=== PATIENT | female | born 1965 | race African-American/Black ===

== ENCOUNTER → 2018-06-11 | Day surgery (SDC) | payer BC ==
[2018-06-08 10:29] LABS: Basophils # (auto) 0 uL; Basophils % (auto) 0.3 % (0.0-2.0); Eosinophils # (auto) 0.1 uL; Eosinophils % (auto) 1.5 % (0.0-7.0); Hematocrit 40.1 % (36.0-46.0); Hemoglobin 13.3 g/dL (12.2-16.2); Lymphocytes # (auto) 1.1 uL; Lymphocytes % (auto) 29.3 % (10.0-50.0); Mean Corpuscular Hemoglobin 29.7 pg (28.0-32.0); Mean Corpuscular Hgb Conc. 33.3 g/dL (32.0-36.0); Mean Corpuscular Volume 89.2 fL (80.0-100.0); Monocytes # (auto) 0.3 uL; Monocytes % (auto) 8.6 % (0.0-12.0); Neutrophils # (auto) 2.3 uL; Neutrophils % (auto) 60.3 % (37.0-80.0); Nucleated Red Blood Cells % 0.1 %; Platelet Count (auto) 183 10^3/uL (140-450); Red Blood Cells 4.49 10^6/uL (4.0-5.20); White Blood Cell 3.8 10^3/uL (4.4-10.8)
[2018-06-08 10:40] LABS: Urine Bacteria NONE SEEN /hpf (None Seen); Urine Blood Negative /uL (Negative); Urine Specific Gravity 1.025 (1.001-1.035); Urine WBC <1 /hpf (0 - 5)
[2018-06-08 10:59] LABS: INR 0.94 (0.9-1.15); Partial Thromboplastin Time 25.2 sec (23.78-33.04); Prothrombin Time 10.1 sec (9.27-12.13)
[2018-06-08 11:19] LABS: Potassium 3.7 mmol/L (3.5-5.1)
[2018-06-08 11:34] LABS: Albumin 3.4 g/dL (3.4-5.0); Bilirubin, Total 0.2 mg/dL (0.2-1.0); Calcium 8.4 mg/dL (8.5-10.1)
[~2018-06-11] VITALS: Ht 172.7 cm; Wt 99.8 kg
[~2018-06-11] MED LIST: ACET-1603 OR; ASPI81TA27 PO; BUPIVACAINE 0.5% P/F INJ 10 ML VIAL ONE; HEPARIN SODIUM (PORCINE) 5000 UNITS/ML 1ML VIAL ONE; HEPARIN SODIUM (PORCINE) 5000 UNITS/ML 1ML VIAL SC ONE; HYDR25TA4 PO; HYDROmorphone HCL 2 MG/ML VL IV PRN; KETOROLAC TROMETH 30 MG/ML 1ML VIAL IV ONE; KETOROLAC TROMETH 60MG/2ML VIAL IM ONE; LIDOCAINE 1% HCL (LOCAL ANESTH.) INJ 20ML MDV ONE; METO-158 PO; METOCLOPRAMIDE HCL 5MG/ml INJ 2ml VIAL IV ONE; MIDAZOLAM HCL 1MG/1ML-2 ML VIAL ONE; NEOMYCIN-BACITRACIN-POLYM 15GM TOP OINT TOP ONE; ONDANSETRON HCL 4 MG/2 ML VIAL ONE; PROPOFOL 10 MG/ML 20 ML IV ONE; SODIUM CHLORIDE LOCK 10 ML ONE; ceFAZolin 1GM VL ONE; ceFAZolin 1GM/50ML 100 ML IV ONE; fentaNYL CITRATE 100 MCG/2 ML VL ONE
[2018-06-11 09:49] VITALS: BP 110/76
== END | disposition home or self-care (01) ==
LOC: SUR 06:08
PROVIDERS: ATTEND Surgery
DX: N76.4 Abscess of vulva (principal); E66.9 Obesity, unspecified; I10 Essential (primary) hypertension; F41.9 Anxiety disorder, unspecified; Z68.33 Body mass index [BMI] 33.0-33.9, adult; Z87.891 Personal history of nicotine dependence; Z82.49 Family history of ischemic heart disease and other diseases of the circulatory system; Z79.82 Long term (current) use of aspirin; Z79.899 Other long term (current) drug therapy
CPT/HCPCS: 36415; 56405; 80053; 81001; 85025; 85610; 85730; J0690; J1644; J1885; J2001; J2250; J2405; J2704; J3010; J3490